=== PATIENT | male | born 1955 | race Caucasian/White ===

== ENCOUNTER 2017-06-13 17:20 | Inpatient (IN) | payer MEDICAID, MEDICARE ==
[2017-06-13 17:21] VITALS: BMI 21.5
[2017-06-13] MEDS ORDERED: Albuterol-Ipratrop 3 mg / 0.5 (3 ml) UD INH STA (17:49)
[2017-06-13] MEDS ORDERED: Albuterol-Ipratrop 3 mg / 0.5 (3 ml) UD ONE (17:55)
--- NOTE | 2017-06-13 18:00 | ED PDOC ---
HPI: SOB/CHF/COPD Time Seen by Provider: 06/13/17 17:32 Chief Complaint (Nursing): Shortness Of Breath Chief Complaint (Provider): Shortness Of Breath History Per: Patient History/Exam Limitations: no limitations Onset/Duration Of Symptoms: Days (x3) Current Symptoms Are (Timing): Still Present Additional Complaint(s): 62 y/o male with a pmhx of emphysema and HTN, who presents to the ED complaining of SOB and cough x3 days. Patient reports cough is productive of white sputum and associated with chest tightness. Denies fever, but confirms chills. Denies leg swelling and chest pain. PMD: Dr. Vu Past Medical History Reviewed: Historical Data, Nursing Documentation, Vital Signs Vital Signs: Last Vital Signs Temp 98.2 F 06/16/17 08:07 Pulse 54 L 06/16/17 09:12 Resp 18 06/16/17 08:07 BP 139/72 06/16/17 09:12 Pulse Ox 98 06/16/17 08:07 - Medical History PMH: Depression, Emphysema, HTN, Schizophrenia Denies: Diabetes, Hepatitis, HIV, Chronic Kidney Disease, Seizures, Sexually Transmitted Disease - Surgical History Surgical History: No Surg Hx - Family History Family History: States: Unknown Family Hx - Social History Current smoker - smoking cessation education provided: Yes Alcohol: Other (currently in [facility] for alcoholism) Drugs: Denies - Home Medications Home Medications: Ambulatory Orders Medication Instructions Recorded Atenolol [Tenormin] 25 mg PO DAILY 06/13/17 Benztropine [Cogentin] 1 mg PO Q12 06/13/17 Carbamazepine [Carbamazepine ER] 300 mg PO HS 06/13/17 Famotidine [Pepcid] 20 mg PO BID 06/13/17 Ibuprofen [Motrin Tab] 400 mg PO Q6 PRN 06/13/17 Phenytoin, Extended [Dilantin] 200 mg PO Q12 06/13/17 Ramipril [Altace] 10 mg PO DAILY 06/13/17 Silver Sulfadiazine [Ssd] 1 appl TOP DAILY 06/13/17 risperiDONE [RisperDAL Tab] 3 mg PO Q12 06/13/17 - Allergies Allergies/Adverse Reactions: Allergies Allergy/AdvReac Type Severity Reaction Status Date / Time No Known Allergies Allergy Verified 11/27/15 23:12 Review of Systems ROS Statement: Except As Marked, All Systems Reviewed And Found Negative Constitutional: Positive for: Chills. Negative for: Fever Cardiovascular: Positive for: Other (chest tightness). Negative for: Chest Pain Respiratory: Positive for: Cough, Shortness of Breath, Sputum Musculoskeletal: Negative for: Leg Pain Physical Exam - Reviewed Nursing Documentation Reviewed: Yes Vital Signs Reviewed: Yes - Physical Exam Appears: Positive for: In Acute Distress (mild respiratory distress, somewhat unkempt, cachectic ) Head Exam: Positive for: ATRAUMATIC, NORMOCEPHALIC Skin: Positive for: Warm, Dry Eye Exam: Positive for: EOMI, PERRL ENT: Positive for: Other (dry mucous membranes) Neck: Positive for: Painless ROM, Supple Cardiovascular/Chest: Positive for: Regular Rate, Rhythm. Negative for: Murmur Respiratory: Positive for: Accessory Muscle Use (mild), Rhonchi (diffuse), Respiratory Distress (mild) Gastrointestinal/Abdominal: Positive for: Soft. Negative for: Tenderness Back: Negative for: Decreased ROM Extremity: Positive for: Other (subacute wound to first web space of left hand which patient reports is a burn from coffee). Negative for: Pedal Edema, Swelling Lymphatic: Negative for: Adenopathy Neurologic/Psych: Positive for: Alert. Negative for: Motor/Sensory Deficits - Laboratory Results Result Diagrams: 06/14/17 04:20 06/16/17 06:20 - ECG O2 Sat by Pulse Oximetry: 97 Medical Decision Making Medical Decision Makin:48 Initial Impression: Dyspnea. Differential diagnoses include, but are not limited to COPD exacerbation, pneumonia, CHF, hyperkalemia, ACS, and electrolyte abnormality. Plan: --Blood type and screen --VGB shock panel --EKG --BNP --CMP --Magnesium --Phosphorus --Troponin I --CBC --PTT/PT --CXR --Duoneb 9ml INH --Solu-Medrol 125mg IVP --Blood culture --monitor tech --IV Insertion --Influenza A/B EKG: Sinus rhythm 73 bpm, LVH with narrow QRS, questionable peaked T waves. Accession No. : [id number] Patient Name / ID : HARINDER MCKEON / [id number] Exam Date : 06/13/2017 18:02:45 ( Approved ) Study Comment : Sex / Age : M / 62Y Creator : Gilbert Otero MD Dictator : Gilbert Otero MD [employer] : [employer] Grader : Gilbert Otero MD Approver2 : Report Date : 06/13/2017 18:29:34 My Comment : HISTORY: SOB COMPARISON: No prior. FINDINGS: LUNGS: No active pulmonary disease. PLEURA: No significant pleural effusion identified, no pneumothorax apparent. CARDIOVASCULAR: No radiographic findings to suggest acute or significant cardiovascular disease. OSSEOUS STRUCTURES: No significant abnormalities. VISUALIZED UPPER ABDOMEN: Normal. OTHER FINDINGS: None. IMPRESSION: No active disease. When c/w previous CXR demonstrates increased size of cardiac silhouette. No infiltrate/effusion. Labs also demonstrate hyponatremia and elevated probnp. Findings c/w new or worsening CHF/fluid retention. Lasix ordered. DW pt findings and plan of care. Pt initially reporting he does not want to stay. Reviewed pt's history in medical chart and discussed with patient's group, who will not take him back if he is not medically stable. They report that he does not see his PMD regularly as recommended. Pt has history of schizophrenia and he poorly understands the circumstances of his medical condition. Pt to have psychiatric evaluation tomorrow to determine better his capacity for medical decision making. Will not allow pt to leave A at this time. Scribe Attestation: Documented by Trae French, acting as a scribe for Brianne Cabrera MD. Provider Scribe Attestation: All medical record entries made by the Scribe were at my direction and personally dictated by me. I have reviewed the chart and agree that the record accurately reflects my personal performance of the history, physical exam, medical decision making, and the department course for this patient. I have also personally directed, reviewed, and agree with the discharge instructions and disposition. Disposition - Clinical Impression Clinical Impression: Schizophrenia, Essential (primary) hypertension, CHF (congestive heart failure) , COPD exacerbation, Hyponatremia Discussed With Dr.: Lambert Best Doctor Will See Patient In The: Hospital Counseled Patient/Family Regarding: Studies Performed, Diagnosis - Disposition Disposition Time: 20:00 Condition: GUARDED - Pt Status Changed To: Hospital Disposition Of: Inpatient - Admit Certification Admit to Inpatient:: After my assessment, the patient will require hospitalization for at least two midnights. This is because of the severity of symptoms shown, intensity of services needed, and/or the medical risk in this patient being treated as an outpatient. - POA Present On Arrival: None
[2017-06-13 18:10] LABS: BASO % 0.8 % (0.0-2.0); EOS % 0.3 % (0.0-4.0); HEMOGLOBIN 14.8 g/dL (12.0-18.0); LYMPH # 0.5 K/uL (1.0-4.3); LYMPH % 14.7 % (20.0-40.0); MEAN CELL VOLUME 96.9 fl (80.0-94.0); MEAN CORPUSCULAR HEMOGLOBIN 34.6 pg (27.0-31.0); MEAN CORPUSCULAR HGB CONC 35.7 g/dL (33.0-37.0); MONO # 0.8 K/uL (0.0-0.8); MONO % 22.6 % (0.0-10.0); NEUT # 2.3 K/uL (1.8-7.0); NEUT % 61.6 % (50.0-75.0); NRBC % 0.1 % (0.0-0.0); PLATELET COUNT 119 K/uL (130-400); RBC 4.29 Mil/uL (4.40-5.90); RED CELL DISTRIBUTION WIDTH 13.2 % (11.5-14.5); WHITE BLOOD COUNT 3.7 K/uL (4.8-10.8)
[2017-06-13 18:13] LABS: VENOUS BLOOD GAS BASE EXCESS 2.8 mmol/L (0.0-2.0); VENOUS BLOOD GAS PCO2 40 mmHg (40-60); VENOUS BLOOD GAS PO2 40 mm/Hg (30-55); VENOUS BLOOD PH 7.44 (7.32-7.43)
[2017-06-13 18:20] LABS: PARTIAL THROMBOPLASTIN TIME 31.9 Seconds (25.6-37.1); PROTHROMBIN TIME 11.5 Seconds (9.8-13.1)
--- NOTE | 2017-06-13 18:30 | RAD ---
HISTORY: SOB COMPARISON: No prior. FINDINGS: LUNGS: No active pulmonary disease. PLEURA: No significant pleural effusion identified, no pneumothorax apparent. CARDIOVASCULAR: No radiographic findings to suggest acute or significant cardiovascular disease. OSSEOUS STRUCTURES: No significant abnormalities. VISUALIZED UPPER ABDOMEN: Normal. OTHER FINDINGS: None. IMPRESSION: No active disease.
[2017-06-13 18:31] LABS: ALB/GLOB RATIO 1.6 (1.0-2.1); ALBUMIN 4.1 g/dL (3.5-5.0); ALT/SGPT 41 U/L (21-72); AST/SGOT 35 U/L (17-59); BLOOD UREA NITROGEN 12 mg/dl (9-20); GFR AFRICAN-AMERICAN > 60; GFR NON-AFRICAN AMERICAN > 60
[2017-06-13 18:42] LABS: B-TYPE NATRIURETIC PEPTIDE 1340 pg/ml (0-900)
[2017-06-13] MEDS ORDERED: Sodium Chloride 0.9% 1,000 ML IV STA (18:43)
[2017-06-13 19:20] LABS: BANDS 1 % (0-2); LYMPHOCYTE 3 % (20-50); MONOCYTE 20 % (0-10); NEUTROPHIL 68 % (42-75); PLATELET ESTIMATE DECREASED (NORMAL); REACTIVE LYMPHOCYTES 8 % (0-0); TOTAL CELLS COUNTED 100
[2017-06-14] MEDS: Albuterol-Ipratrop 3 mg / 0.5 (3 ml) UD INH SCH ×4 (00:59→19:18)
[2017-06-14 05:38] LABS: HEMOGLOBIN 14.6 g/dL (12.0-18.0); MEAN CELL VOLUME 96.8 fl (80.0-94.0); MEAN CORPUSCULAR HGB CONC 35.1 g/dL (33.0-37.0); RBC 4.29 Mil/uL (4.40-5.90); RED CELL DISTRIBUTION WIDTH 13.2 % (11.5-14.5); WHITE BLOOD COUNT 3.6 K/uL (4.8-10.8)
[2017-06-14 05:49] LABS: BLOOD UREA NITROGEN 13 mg/dl (9-20); CALCIUM 8.9 mg/dL (8.4-10.2); GFR AFRICAN-AMERICAN > 60; GFR NON-AFRICAN AMERICAN > 60
[2017-06-14] MEDS: Enoxaparin 40 mg Syringe SC SCH (08:33)
[2017-06-14] MEDS: Silver Sulfadiazine 1% CREAM (50 gm) TOP SCH (08:36)
[2017-06-14] MEDS ORDERED: methylPREDNISolone 40 MG in Sodium Chloride 0.9% 50 ML IVPB SCH (09:15)
[2017-06-14 09:16] LABS: CARBAMAZEPINE < 3.0 ug/mL (4.0-12.0); DILANTIN (PHENYTOIN) 4.9 ug/ML (10-20)
--- NOTE | 2017-06-14 10:03 | HP ---
HISTORY OF PRESENT ILLNESS: Mr. Pringle is a 62-year-old male who was admitted via the emergency room because of shortness of breath, exercise intolerance, and cough for the past 3 days prior to presentation, worse on the day of admission. He complains of production of whitish sputum with chest tightness, but no fever or chills, no swelling of the legs. PAST MEDICAL HISTORY: Chronic obstructive pulmonary disease, hypertension, questionable congestive heart failure, and schizophrenia. FAMILY HISTORY: Non-revealing. SOCIAL HISTORY: Socially, he resides in a senior care. Continues to smoke cigarettes. Does not drink alcohol. Does not use drugs. REVIEW OF SYSTEMS: Remarkable for cough and shortness of breath. PHYSICAL EXAMINATION: GENERAL: The patient is alert and oriented to person but not to place. VITAL SIGNS: Blood pressure 150/69 with the pulse of 61, respiratory rate of 20. He is afebrile. O2 sat is 97% on room air. SKIN: Shows fair turgor. HEENT: Pupils are equal and reactive to light and accommodation. Mouth shows fair hygiene with mucous engorgement of pharynx. NECK: JVP flat. LUNGS: Poor aeration with scattered rales and wheezing. HEART: S1 and S2. ABDOMEN: Soft and nontender, no organomegaly. EXTREMITIES: Show no edema or cyanosis. CENTRAL NERVOUS SYSTEM: Grossly intact. LABORATORY DATA: WBC 3.7, hemoglobin 14.8, and platelet count 119,000. Sodium 123, potassium 4.6, BUN 12, creatinine 0.6, and serum glucose 71. Chest x-ray is remarkable for no active cardiopulmonary pathology noted. EKG is remarkable for normal sinus rhythm, left ventricular hypertrophy with repolarization cannot rule out inferior infarct. IMPRESSION: Acute exacerbation of chronic obstructive pulmonary, mild congestive heart failure based on elevated proBNP, hyponatremia, probably secondary to pulmonary disease and syndrome of inappropriate antidiuretic hormone secretion, and history of psychiatric disorder. PLAN: The plan is diuretic therapy, aerolized bronchodilators, oxygen, and intravenous steroids. We will repeat blood work and chest x-ray in the a.m. Psych evaluation already requested from the ER. Echocardiogram also ordered. Cardiac evaluation depending on echocardiogram results. We will continue therapy as ordered. Lambert Best MD [facility] # [id number]
[2017-06-14] MEDS: MethylPREDNISolone 40 mg Vial IVP SCH ×2 (10:23→21:45)
--- NOTE | 2017-06-14 10:43 | CARD ---
APPROVED REPORT EKG Measurement Heart [id number] [place] [id number] [id number] <Conclusion> Normal sinus rhythm Left ventricular hypertrophy with repolarization abnormality Cannot rule out Inferior infarct, age undetermined Abnormal ECG
[2017-06-14 10:50] LABS: ABG ALLEN TEST YES; ARTERIAL BLOOD GAS HCO3 25.6 mmol/L (21-28); ARTERIAL BLOOD GAS HEMOGLOBIN 14.5 g/dL (11.7-17.4); ARTERIAL BLOOD GAS O2 CAPACITY 19.3 mL/dL (16-24); ARTERIAL BLOOD GAS O2 CONTENT 19.1 ML/dL (15-23); ARTERIAL BLOOD GAS O2 SAT 98.9 % (95-98); ARTERIAL BLOOD GAS PCO2 32 mm/Hg (35-45); ARTERIAL BLOOD GAS PH 7.48 (7.35-7.45); ARTERIAL BLOOD GAS PO2 94 mm/Hg (80-100); ARTERIAL BLOOD GAS TCO2 24.8 mmol/L (22-28)
--- NOTE | 2017-06-14 12:12 | CARD ---
APPROVED REPORT EXAM: Two-dimensional and M-mode echocardiogram with Doppler and color Doppler. Other Information Quality : ExcellentRhythm : NSR INDICATION Congestive Heart Failure 2D DIMENSIONS IVSd1.43 (0.7-1.1cm)LVDd6.07 (3.9-5.9cm) LVOT Diameter2.04 (1.8-2.4cm)PWd0.73 (0.7-1.1cm) IVSs1.55 (0.8-1.2cm)LVDs5.27 (2.5-4.0cm) FS (%) 13.2 %PWs0.85 (0.8-1.2cm) M-Mode DIMENSIONS Left Atrium (MM)5.71 (2.5-4.0cm)IVSd0.97 (0.7-1.1cm) Aortic Root3.24 (2.2-3.7cm)LVDd7.06 (4.0-5.6cm) Aortic Cusp Exc.1.76 (1.5-2.0cm)PWd0.68 (0.7-1.1cm) IVSs1.85 cmFS (%) 28 % LVDs5.09 (2.0-3.8cm)PWs0.91 cm Mitral Valve MV E Ronhpkeb96.2cm/sMV DECEL [id number] A Coygmpzn42.2cm/s MV THH93nuW/A ratio1.6MVA (PHT)4.11cm2 TDI Lateral E' Peak V14.75cm/sMedial E' Peak V8.56cm/sE/Lateral E'6.2 E/Medial E'10.7 Pulmonary Valve PV Peak Qrdboxjx487.1cm/s Tricuspid Valve TR Peak Bkpoijay922qk/sRAP UVTRMFJP66gtGwSA Peak Gr.25mmHg RPBW93hpJr LEFT VENTRICLE The Left Ventricle is moderately dilated. There is mild concentric left ventricular hypertrophy on the 2D study. Left ventricle systolic function is moderately impaired. The Ejection Fraction is - 40%. The anterior, septal and lateral lou contract well. The apex is mildly diskinetic in some views. The inferior and posterior lou are severely hypokinetic in some views. The left ventricular diastolic function is normal. No left ventricle thrombus noted on this study. There is no ventricular septal defect visualized. There is no left ventricular aneurysm. There is no mass noted in the left ventricle. RIGHT VENTRICLE The right ventricle is normal size. There is normal right ventricular wall thickness. The right ventricular systolic function is normal. ATRIA The left atrium is moderately dilated on the 2D study. There is no thrombus suspected in the left atrium. The right atrium size is normal. The interatrial septum is intact with no evidence for an atrial septal defect. AORTIC VALVE The aortic valve is normal in structure. No aortic regurgitation is present. There is no aortic valvular stenosis. MITRAL VALVE The mitral valve is normal in structure. There is no evidence of mitral valve prolapse. There is no mitral valve stenosis. Mitral regurgitation is severe. TRICUSPID VALVE The tricuspid valve is normal in structure. There is moderate tricuspid regurgitation. Right ventricular systolic pressure is estimated at 35 mmHg. There is no tricuspid valve prolapse or vegetation. There is no tricuspid valve stenosis. PULMONIC VALVE The pulmonary valve is normal in structure. There is trace pulmonic valvular regurgitation. GREAT VESSELS The aortic root is normal in size. The IVC is normal in size and collapses >50% with inspiration. PERICARDIAL EFFUSION The pericardium appears normal. There is no pleural effusion. <Conclusion> The Left Ventricle is moderately dilated. There is mild concentric left ventricular hypertrophy on the 2D study. Left ventricle systolic function is moderately impaired. The Ejection Fraction is - 40%. The left atrium is moderately dilated on the 2D study. The mitral, aortic and tricuspid valves are normal. There is severe mitral regurgitation and moderate tricuspid regurgitation.
[2017-06-14] MEDS: levoFLOXacin 500 mg in D5W 500 MG/100 ML BAG IVPB SCH (14:31)
--- NOTE | 2017-06-14 16:12 | CP.PCM.CON ---
History of Present Illness - History of Present Illness History of Present Illness: 62 y/o male with a pmhx of emphysema and HTN, who presents to the ED complaining of SOB and cough x3 days. pt has history of schizophrenia, currently residing in a snf, followed up buy outpatient psychiatrist pt on evaluation cooperative compliant with medications, no reported changes in sleep or appetitedenied any current perceptual disturbances, denied suicidal or homicidal ideations Past Patient History - Past Medical History & Family History Past Medical History?: Yes - Past Social History Smoking Status: Current Some Days Smoker - CARDIAC Hx Cardiac Disorders: Yes Hx Hypertension: Yes - PULMONARY Hx Respiratory Disorders: Yes Hx Emphysema: Yes - NEUROLOGICAL Hx Neurological Disorder: No Hx Seizures: No - HEENT Hx HEENT Problems: Yes Hx Glaucoma: Yes - RENAL Hx Chronic Kidney Disease: No - ENDOCRINE/METABOLIC Hx Endocrine Disorders: No - HEMATOLOGICAL/ONCOLOGICAL Hx Blood Disorders: No Hx AIDS: No Hx Human Immunodeficiency Virus (HIV): No - INTEGUMENTARY Hx Dermatological Problems: Yes Hx Clemens: Yes (Left hand) - MUSCULOSKELETAL/RHEUMATOLOGICAL Hx Musculoskeletal Disorders: No Hx Falls: No - GASTROINTESTINAL Hx Gastrointestinal Disorders: No - GENITOURINARY/GYNECOLOGICAL Hx Genitourinary Disorders: No Hx Sexually Transmitted Disorders: No - PSYCHIATRIC Hx Psychophysiologic Disorder: Yes Hx Depression: Yes Hx Schizophrenia: Yes Hx Substance Use: No - SURGICAL HISTORY Hx Surgeries: No - ANESTHESIA Hx Anesthesia: No Meds Allergies/Adverse Reactions: Allergies Allergy/AdvReac Type Severity Reaction Status Date / Time No Known Allergies Allergy Verified 11/27/15 23:12 - Medications Medications: Current Medications Acetaminophen (Tylenol 325mg Tab) 650 mg PO Q6 PRN PRN Reason: Fever >100.4 F Last Admin: 06/14/17 14:41 Dose: 650 mg Albuterol/Ipratropium (Duoneb 3 Mg/0.5 Mg (3 Ml) Ud) 3 ml INH RQ6 KWESI Last Admin: 06/14/17 13:46 Dose: 3 ml Aspirin (Ecotrin) 81 mg PO DAILY [facility] Last Admin: 06/14/17 08:35 Dose: 81 mg Atenolol (Tenormin) 25 mg PO DAILY [facility] Last Admin: 06/14/17 08:36 Dose: 25 mg Benztropine Mesylate (Cogentin) 1 mg PO Q12 [facility] Last Admin: 06/14/17 08:34 Dose: 1 mg Carbamazepine (Tegretol-Xr) 300 mg PO HS [facility] Last Admin: 06/14/17 00:38 Dose: 300 mg Enoxaparin Sodium (Lovenox) 40 mg SC DAILY [facility] PRN Reason: Protocol Last Admin: 06/14/17 08:33 Dose: 40 mg Famotidine (Pepcid) 20 mg PO BID [facility] Last Admin: 06/14/17 08:32 Dose: 20 mg Furosemide (Lasix) 40 mg IVP DAILY [facility] Last Admin: 06/14/17 13:13 Dose: 40 mg Levofloxacin/Dextrose (Levaquin 500mg) 500 mg in 100 mls @ 100 mls/hr IVPB DAILY [facility] PRN Reason: Protocol Last Admin: 06/14/17 14:31 Dose: 100 mls/hr Ibuprofen (Motrin Tab) 400 mg PO Q6 PRN PRN Reason: Pain, moderate (4-7) Methylprednisolone (Solu-Medrol) 40 mg IVP Q12 [facility] Last Admin: 06/14/17 10:23 Dose: 40 mg Nicotine (Nicoderm Cq) 1 patch TD DAILY [facility] Last Admin: 06/14/17 14:40 Dose: 1 patch Phenytoin Sodium (Dilantin) 200 mg PO Q12 [facility] Last Admin: 06/14/17 08:35 Dose: 200 mg Ramipril (Altace) 10 mg PO DAILY [facility] Last Admin: 06/14/17 08:35 Dose: 10 mg Risperidone (Risperdal Tab) 3 mg PO Q12 [facility] Last Admin: 06/14/17 08:35 Dose: 3 mg Silver Sulfadiazine (Silvadene 1% 50 Gm) 1 applic TOP DAILY [facility] Last Admin: 06/14/17 08:36 Dose: 1 applic Physical Exam - Psychiatric Exam Additional comments: pt calm cooperative good eye contact, mood reported fine appropriate affect, concrete thought process denied any perceptual disturbances, non elicited, denied suicidal or homicidal ideations ,alert awake oriented to person and place fair insight Results - Vital Signs Recent Vital Signs: Last Vital Signs Temp 101.8 F H 06/14/17 14:41 Pulse 70 06/14/17 12:23 Resp 18 06/14/17 12:23 BP 135/71 06/14/17 13:13 Pulse Ox 96 06/14/17 12:23 - Labs Result Diagrams: 06/14/17 04:20 06/14/17 04:20 Labs: Laboratory Results - last 24 hr 06/13/17 06/13/17 06/13/17 18:00 18:00 18:00 WBC 3.7 L RBC 4.29 L Hgb 14.8 Hct 41.6 MCV 96.9 H MCH 34.6 H MCHC 35.7 RDW 13.2 Plt Count 119 L MPV 7.0 L Neut % (Auto) 61.6 Lymph % (Auto) 14.7 L Franklin % (Auto) 22.6 H Eos % (Auto) 0.3 Baso % (Auto) 0.8 Neut # (Auto) 2.3 Lymph # (Auto) 0.5 L Franklin # (Auto) 0.8 Eos # (Auto) 0.0 Baso # (Auto) 0.0 Neutrophils % (Manual) 68 Band Neutrophils % 1 Lymphocytes % (Manual) 3 L Reactive Lymphs % 8 H Monocytes % (Manual) 20 H Platelet Estimate Decreased L RBC Morphology Normal PT 11.5 INR 1.0 APTT 31.9 pCO2 pO2 HCO3 ABG pH ABG Total CO2 ABG O2 Saturation ABG O2 Content ABG Base Excess ABG Hemoglobin ABG Carboxyhemoglobin POC ABG HHb (Measured) ABG Methemoglobin ABG O2 Capacity Taj Test VBG pH VBG pCO2 VBG HCO3 VBG Total CO2 VBG O2 Sat (Calc) VBG Base Excess VBG Potassium A-a O2 Difference Hgb O2 Saturation Glucose Lactate FiO2 Blood Gas Comments Crit Value Called To Crit Value Called By Crit Value Read Back Blood Gas Notified Time Sodium 123 L Potassium 4.6 Chloride 90 L Carbon Dioxide 23 Anion Gap 15 BUN 12 Creatinine 0.6 L Est GFR ( Amer) > 60 Est GFR (Non-Af Amer) > 60 Random Glucose 71 L Calcium 9.0 Phosphorus 3.8 Magnesium 1.9 Total Bilirubin 0.5 AST 35 ALT 41 Alkaline Phosphatase 75 Troponin I 0.0140 NT-Pro-B Natriuret Pep 1340 H Total Protein 6.7 Albumin 4.1 Globulin 2.6 Albumin/Globulin Ratio 1.6 Venous Blood Potassium Phenytoin Carbamazepine Influenza Typ A,B (EIA) Blood Type Blood Type Confirm Antibody Screen BBK History Checked 06/13/17 06/13/17 06/13/17 18:00 18:07 19:00 WBC RBC Hgb Hct MCV MCH MCHC RDW Plt Count MPV Neut % (Auto) Lymph % (Auto) Franklin % (Auto) Eos % (Auto) Baso % (Auto) Neut # (Auto) Lymph # (Auto) Franklin # (Auto) Eos # (Auto) Baso # (Auto) Neutrophils % (Manual) Band Neutrophils % Lymphocytes % (Manual) Reactive Lymphs % Monocytes % (Manual) Platelet Estimate RBC Morphology PT INR APTT pCO2 pO2 40 HCO3 ABG pH ABG Total CO2 ABG O2 Saturation ABG O2 Content ABG Base Excess ABG Hemoglobin ABG Carboxyhemoglobin POC ABG HHb (Measured) ABG Methemoglobin ABG O2 Capacity Taj Test VBG pH 7.44 H VBG pCO2 40 VBG HCO3 26.6 VBG Total CO2 28.4 H VBG O2 Sat (Calc) 82.2 H VBG Base Excess 2.8 H VBG Potassium 4.6 A-a O2 Difference 60.0 Hgb O2 Saturation Glucose 72 L Lactate 0.9 FiO2 21.0 Blood Gas Comments Crit Value Called To Zoe hassan Crit Value Called By 23 Crit Value Read Back Y Blood Gas Notified Time 1811 Sodium 120.0 L* Potassium Chloride 89.0 L Carbon Dioxide Anion Gap BUN Creatinine Est GFR ( Amer) Est GFR (Non-Af Amer) Random Glucose Calcium Phosphorus Magnesium Total Bilirubin AST ALT Alkaline Phosphatase Troponin I NT-Pro-B Natriuret Pep Total Protein Albumin Globulin Albumin/Globulin Ratio Venous Blood Potassium 4.6 Phenytoin Carbamazepine Influenza Typ A,B (EIA) Blood Type A POSITIVE Blood Type Confirm A POSITIVE Antibody Screen Negative BBK History Checked No verified bt 06/13/17 06/14/17 06/14/17 19:10 04:20 04:20 WBC 3.6 L RBC 4.29 L Hgb 14.6 Hct 41.5 MCV 96.8 H MCH 34.0 H MCHC 35.1 RDW 13.2 Plt Count 109 L MPV Neut % (Auto) Lymph % (Auto) Franklin % (Auto) Eos % (Auto) Baso % (Auto) Neut # (Auto) Lymph # (Auto) Franklin # (Auto) Eos # (Auto) Baso # (Auto) Neutrophils % (Manual) Band Neutrophils % Lymphocytes % (Manual) Reactive Lymphs % Monocytes % (Manual) Platelet Estimate RBC Morphology PT INR APTT pCO2 pO2 HCO3 ABG pH ABG Total CO2 ABG O2 Saturation ABG O2 Content ABG Base Excess ABG Hemoglobin ABG Carboxyhemoglobin POC ABG HHb (Measured) ABG Methemoglobin ABG O2 Capacity Taj Test VBG pH VBG pCO2 VBG HCO3 VBG Total CO2 VBG O2 Sat (Calc) VBG Base Excess VBG Potassium A-a O2 Difference Hgb O2 Saturation Glucose Lactate FiO2 Blood Gas Comments Crit Value Called To Crit Value Called By Crit Value Read Back Blood Gas Notified Time Sodium 125 L Potassium 3.7 Chloride 90 L Carbon Dioxide 23 Anion Gap 16 BUN 13 Creatinine 0.7 L Est GFR ( Amer) > 60 Est GFR (Non-Af Amer) > 60 Random Glucose 96 Calcium 8.9 Phosphorus Magnesium Total Bilirubin AST ALT Alkaline Phosphatase Troponin I NT-Pro-B Natriuret Pep Total Protein Albumin Globulin Albumin/Globulin Ratio Venous Blood Potassium Phenytoin Carbamazepine Influenza Typ A,B (EIA) Negative for flu a/b Blood Type Blood Type Confirm Antibody Screen BBK History Checked 06/14/17 06/14/17 08:45 09:14 WBC RBC Hgb Hct MCV MCH MCHC RDW Plt Count MPV Neut % (Auto) Lymph % (Auto) Franklin % (Auto) Eos % (Auto) Baso % (Auto) Neut # (Auto) Lymph # (Auto) Franklin # (Auto) Eos # (Auto) Baso # (Auto) Neutrophils % (Manual) Band Neutrophils % Lymphocytes % (Manual) Reactive Lymphs % Monocytes % (Manual) Platelet Estimate RBC Morphology PT INR APTT pCO2 32 L pO2 94 HCO3 25.6 ABG pH 7.48 H ABG Total CO2 24.8 ABG O2 Saturation 98.9 H ABG O2 Content 19.1 ABG Base Excess 1.0 ABG Hemoglobin 14.5 ABG Carboxyhemoglobin 4.4 H POC ABG HHb (Measured) 1.0 ABG Methemoglobin 1.4 ABG O2 Capacity 19.3 Taj Test Yes VBG pH VBG pCO2 VBG HCO3 VBG Total CO2 VBG O2 Sat (Calc) VBG Base Excess VBG Potassium A-a O2 Difference 16.0 Hgb O2 Saturation 93.2 L Glucose Lactate FiO2 21.0 Blood Gas Comments Ra21% Crit Value Called To Rowan lewis r.n. Crit Value Called By Padmini Crit Value Read Back N Blood Gas Notified Time 1050 Sodium Potassium Chloride Carbon Dioxide Anion Gap BUN Creatinine Est GFR ( Amer) Est GFR (Non-Af Amer) Random Glucose Calcium Phosphorus Magnesium Total Bilirubin AST ALT Alkaline Phosphatase Troponin I NT-Pro-B Natriuret Pep Total Protein Albumin Globulin Albumin/Globulin Ratio Venous Blood Potassium Phenytoin 4.9 L Carbamazepine < 3.0 L Influenza Typ A,B (EIA) Blood Type Blood Type Confirm Antibody Screen BBK History Checked Assessment & Plan - Assessment and Plan (Free Text) Assessment: schizophrenia residual Plan: pt stable at current mental status continue risperidone 3mg bid pt psychiatricaly cleared for discharge to snf on medical clearence
[2017-06-15] MEDS: Albuterol-Ipratrop 3 mg / 0.5 (3 ml) UD INH SCH ×4 (01:00→20:15)
[2017-06-15 06:02] LABS: BLOOD UREA NITROGEN 18 mg/dl (9-20); CALCIUM 8.7 mg/dL (8.4-10.2); GFR AFRICAN-AMERICAN > 60; GFR NON-AFRICAN AMERICAN > 60
[2017-06-15 06:08] LABS: B-TYPE NATRIURETIC PEPTIDE 1200 pg/ml (0-900)
[2017-06-15] MEDS: Silver Sulfadiazine 1% CREAM (50 gm) TOP SCH (09:29)
[2017-06-15] MEDS: Enoxaparin 40 mg Syringe SC SCH ×2 (09:30→09:31)
[2017-06-15] MEDS: MethylPREDNISolone 40 mg Vial IVP SCH ×2 (09:30→21:52)
[2017-06-15] MEDS: levoFLOXacin 500 mg in D5W 500 MG/100 ML BAG IVPB SCH (09:32)
--- NOTE | 2017-06-15 09:37 | IP.NPCORE ---
Heart Failure Core Measure - Heart Failure Ejection Fraction: Less Than 40 % (06/14 EF 40%- on Lasix iv) LAUREN Inhibitor Prescribed: Yes Contraindication/Reason for not providing: atenolol
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
--- NOTE | 2017-06-15 10:10 | CP.PCM.PN ---
Subjective - Date & Time of Evaluation Date of Evaluation: 06/15/17 Time of Evaluation: 10:12 - Subjective Subjective: STILL COUGHING AND DYSPNEIC ON MILD EXERION NO CHEST PAINS Objective - Vital Signs/Intake and Output Vital Signs (last 24 hours): Temp Pulse Resp BP Pulse Ox 97.9 F 62 18 130/71 99 06/15/17 07:47 06/15/17 09:29 06/15/17 07:47 06/15/17 09:32 06/15/17 07:47 - Medications Medications: Current Medications Acetaminophen (Tylenol 325mg Tab) 650 mg PO Q6 PRN PRN Reason: Fever >100.4 F Last Admin: 06/15/17 00:51 Dose: 650 mg Albuterol/Ipratropium (Duoneb 3 Mg/0.5 Mg (3 Ml) Ud) 3 ml INH RQ6 [facility] Last Admin: 06/15/17 07:45 Dose: Not Given Aspirin (Ecotrin) 81 mg PO DAILY [facility] Last Admin: 06/15/17 09:30 Dose: 81 mg Benztropine Mesylate (Cogentin) 1 mg PO Q12 [facility] Last Admin: 06/15/17 09:30 Dose: 1 mg Carbamazepine (Tegretol-Xr) 300 mg PO HS [facility] Last Admin: 06/14/17 00:38 Dose: 300 mg Enoxaparin Sodium (Lovenox) 40 mg SC DAILY [facility] PRN Reason: Protocol Last Admin: 06/15/17 09:31 Dose: 40 mg Famotidine (Pepcid) 20 mg PO BID [facility] Last Admin: 06/15/17 09:29 Dose: 20 mg Furosemide (Lasix) 40 mg IVP DAILY [facility] Last Admin: 06/15/17 09:32 Dose: 40 mg Levofloxacin/Dextrose (Levaquin 500mg) 500 mg in 100 mls @ 100 mls/hr IVPB DAILY [facility] PRN Reason: Protocol Last Admin: 06/15/17 09:32 Dose: 100 mls/hr Ibuprofen (Motrin Tab) 400 mg PO Q6 PRN PRN Reason: Pain, moderate (4-7) Methylprednisolone (Solu-Medrol) 40 mg IVP Q12 [facility] Last Admin: 06/15/17 09:30 Dose: 40 mg Metoprolol Succinate (Toprol Xl) 25 mg PO DAILY [facility] Nicotine (Nicoderm Cq) 1 patch TD DAILY [facility] Last Admin: 06/15/17 09:30 Dose: 1 patch Phenytoin Sodium (Dilantin) 200 mg PO Q12 [facility] Last Admin: 06/15/17 09:30 Dose: 200 mg Ramipril (Altace) 10 mg PO DAILY [facility] Last Admin: 06/15/17 09:29 Dose: 10 mg Risperidone (Risperdal Tab) 3 mg PO Q12 [facility] Last Admin: 06/15/17 09:30 Dose: 3 mg Silver Sulfadiazine (Silvadene 1% 50 Gm) 1 applic TOP DAILY [facility] Last Admin: 06/15/17 09:29 Dose: 1 applic - Labs Labs: 06/14/17 04:20 06/15/17 04:20 PT 11.5 Seconds (9.8-13.1) 06/13/17 18:00 INR 1.0 (0.9-1.2) 06/13/17 18:00 APTT 31.9 Seconds (25.6-37.1) 06/13/17 18:00 - Constitutional Appears: Chronically Ill - Head Exam Head Exam: ATRAUMATIC, NORMAL INSPECTION, NORMOCEPHALIC - Eye Exam Eye Exam: EOMI, Normal appearance, PERRL Pupil Exam: NORMAL ACCOMODATION, PERRL - ENT Exam ENT Exam: Mucous Membranes Moist, Normal Exam - Neck Exam Neck Exam: Full ROM, Normal Inspection. absent: Lymphadenopathy - Respiratory Exam Respiratory Exam: Decreased Breath Sounds, Prolonged Expiratory Phase, Rales, Respiratory Distress, NORMAL BREATHING PATTERN - Cardiovascular Exam Cardiovascular Exam: REGULAR RHYTHM, +S1, +S2. absent: Murmur - GI/Abdominal Exam GI & Abdominal Exam: Soft, Normal Bowel Sounds. absent: Tenderness - Rectal Exam Rectal Exam: NORMAL INSPECTION - Extremities Exam Extremities Exam: Full ROM, Normal Capillary Refill, Normal Inspection. absent : Joint Swelling, Pedal Edema - Back Exam Back Exam: NORMAL INSPECTION - Neurological Exam Neurological Exam: Alert, Awake, CN II-XII Intact, Normal Gait, Oriented x3 - Psychiatric Exam Psychiatric exam: Normal Affect, Normal Mood - Skin Skin Exam: Dry, Intact, Rash, Warm Additional comments: DRY SCALY RASH OF FINGERS Assessment and Plan - Assessment and Plan (Free Text) Assessment: COPD EXAC CAD HTN ABNORMAL ECHO FEVER-?ETIOLOGY Plan: CONTINUE CURRENT RX IV ANTIBIOTICS AWAIT CARDIOLOGY EVAL
[2017-06-15] MEDS ORDERED: Sodium Chloride 3% for Inhalation 4 ML VIAL.NEB IH PRN (10:14)
[2017-06-15] MEDS: Metoprolol Succinate 25 mg XL Tab PO SCH (12:25)
--- NOTE | 2017-06-15 14:37 | RAD ---
HISTORY: CHF COMPARISON[facility]. TECHNIQUE: Chest PA and lateral FINDINGS: LUNGS: No interval active pulmonary disease. PLEURA: No significant pleural effusion identified. No pneumothorax apparent. CARDIOVASCULAR: Normal. OSSEOUS STRUCTURES: No significant abnormalities. VISUALIZED UPPER ABDOMEN: Normal. OTHER FINDINGS: None. IMPRESSION: No interval acute cardiopulmonary disease appreciated.
--- NOTE | 2017-06-15 20:26 | PN ---
DATE: SUBJECTIVE: The patient is still experiencing shortness of breath. PHYSICAL EXAMINATION: VITAL SIGNS: Blood pressure of 107/46, heart rate of 69, temperature of 98.4, and respirations of 17. HEENT: Normocephalic. CHEST: Bilateral rhonchi. HEART: S1 and S2 regular. EXTREMITIES: No edema. LABORATORY DATA: SMA-7; sodium 125, potassium 4, chloride 90, CO2 of 25, glucose 102, BUN 18, creatinine 0.8, and proBNP is 1200. Hemoglobin and hematocrit are within normal limits. White count 3.6 and platelet count 109,000. Echocardiographic study revealed ejection fraction 40%, severe mitral insufficiency, and moderate tricuspid insufficiency. Repeat chest x-ray revealed COPD picture and was borderline cardiomegaly. ASSESSMENT: 1. Moderate systolic heart failure. 2. Chronic obstructive lung disease. 3. Hyponatremia. 4. Leukopenia and thrombocytopenia. 5. History of psychiatric disorder. 6. Severe mitral insufficiency. 7. Mild pulmonary hypertension. RECOMMENDATIONS: Continue Altace, Cogentin, Dilantin, aspirin, IV Lasix, Solu-Medrol, and Toprol-XL. Marvin Hauser MD
[2017-06-16] MEDS: Albuterol-Ipratrop 3 mg / 0.5 (3 ml) UD INH SCH ×4 (01:00→19:42)
[2017-06-16 07:24] LABS: BLOOD UREA NITROGEN 20 mg/dl (9-20); CALCIUM 8.9 mg/dL (8.4-10.2); GFR AFRICAN-AMERICAN > 60; GFR NON-AFRICAN AMERICAN > 60
--- NOTE | 2017-06-16 08:36 | CP.PCM.PN ---
Subjective - Date & Time of Evaluation Date of Evaluation: 06/16/17 Time of Evaluation: 08:36 - Subjective Subjective: SOB IMPROVED COUGH LESS NO CHEST PAINS Objective - Vital Signs/Intake and Output Vital Signs (last 24 hours): Temp Pulse Resp BP Pulse Ox 98.2 F 53 L 18 139/72 98 06/16/17 08:07 06/16/17 08:07 06/16/17 08:07 06/16/17 08:07 06/16/17 08:07 - Medications Medications: Current Medications Acetaminophen (Tylenol 325mg Tab) 650 mg PO Q6 PRN PRN Reason: Fever >100.4 F Last Admin: 06/15/17 00:51 Dose: 650 mg Albuterol/Ipratropium (Duoneb 3 Mg/0.5 Mg (3 Ml) Ud) 3 ml INH RQ6 [facility] Last Admin: 06/16/17 01:00 Dose: Not Given Aspirin (Ecotrin) 81 mg PO DAILY [facility] Last Admin: 06/15/17 09:30 Dose: 81 mg Benztropine Mesylate (Cogentin) 1 mg PO Q12 [facility] Last Admin: 06/15/17 21:53 Dose: 1 mg Carbamazepine (Tegretol-Xr) 300 mg PO HS [facility] Last Admin: 06/15/17 21:53 Dose: 300 mg Enoxaparin Sodium (Lovenox) 40 mg SC DAILY [facility] PRN Reason: Protocol Last Admin: 06/15/17 09:30 Dose: Not Given Famotidine (Pepcid) 20 mg PO BID [facility] Last Admin: 06/15/17 17:03 Dose: 20 mg Furosemide (Lasix) 40 mg IVP DAILY [facility] Last Admin: 06/15/17 09:32 Dose: 40 mg Levofloxacin/Dextrose (Levaquin 500mg) 500 mg in 100 mls @ 100 mls/hr IVPB DAILY [facility] PRN Reason: Protocol Last Admin: 06/15/17 09:32 Dose: 100 mls/hr Ibuprofen (Motrin Tab) 400 mg PO Q6 PRN PRN Reason: Pain, moderate (4-7) Methylprednisolone (Solu-Medrol) 40 mg IVP Q12 [facility] Last Admin: 06/15/17 21:52 Dose: 40 mg Metoprolol Succinate (Toprol Xl) 25 mg PO DAILY [facility] Last Admin: 04/25/18 12:25 Dose: Not Given Nicotine (Nicoderm Cq) 1 patch TD DAILY [facility] Last Admin: 06/15/17 09:30 Dose: 1 patch Phenytoin Sodium (Dilantin) 200 mg PO Q12 [facility] Last Admin: 06/15/17 21:52 Dose: 200 mg Ramipril (Altace) 10 mg PO DAILY [facility] Last Admin: 06/15/17 09:29 Dose: 10 mg Risperidone (Risperdal Tab) 3 mg PO Q12 [facility] Last Admin: 06/15/17 21:52 Dose: 3 mg Silver Sulfadiazine (Silvadene 1% 50 Gm) 1 applic TOP DAILY [facility] Last Admin: 06/15/17 09:29 Dose: 1 applic - Labs Labs: 06/14/17 04:20 06/16/17 06:20 PT 11.5 Seconds (9.8-13.1) 06/13/17 18:00 INR 1.0 (0.9-1.2) 06/13/17 18:00 APTT 31.9 Seconds (25.6-37.1) 06/13/17 18:00 - Constitutional Appears: No Acute Distress - Head Exam Head Exam: ATRAUMATIC, NORMAL INSPECTION, NORMOCEPHALIC - Eye Exam Eye Exam: EOMI, Normal appearance, PERRL Pupil Exam: NORMAL ACCOMODATION, PERRL - ENT Exam ENT Exam: Mucous Membranes Moist, Normal Exam - Neck Exam Neck Exam: Full ROM, Normal Inspection. absent: Lymphadenopathy - Respiratory Exam Respiratory Exam: Decreased Breath Sounds, Prolonged Expiratory Phase, Rales, NORMAL BREATHING PATTERN - Cardiovascular Exam Cardiovascular Exam: REGULAR RHYTHM, +S1, +S2. absent: Murmur - GI/Abdominal Exam GI & Abdominal Exam: Soft, Normal Bowel Sounds. absent: Tenderness - Rectal Exam Rectal Exam: NORMAL INSPECTION - Extremities Exam Extremities Exam: Full ROM, Normal Capillary Refill, Normal Inspection. absent : Joint Swelling, Pedal Edema - Back Exam Back Exam: NORMAL INSPECTION - Neurological Exam Neurological Exam: Alert, Awake, CN II-XII Intact, Normal Gait, Oriented x3 - Psychiatric Exam Psychiatric exam: Normal Affect, Normal Mood - Skin Skin Exam: Dry, Intact, Normal Color, Warm Assessment and Plan - Assessment and Plan (Free Text) Assessment: COPD-IMPROVING CHF-IMPROVING VALVULAR HEART DZ SCHIZOPHRENIA HYPONATREMIA FEVER/URI Plan: CONTINUE CURRENT RX ENDOCRINE EVAL RE-HYPONATREMIA AUDIOVISUAL TECH FOR D/C PLANNING ONCE CLEARED BY ENDO
[2017-06-16] MEDS: Enoxaparin 40 mg Syringe SC SCH ×2 (09:08→09:23)
[2017-06-16] MEDS: levoFLOXacin 500 mg in D5W 500 MG/100 ML BAG IVPB SCH (09:08)
[2017-06-16] MEDS: Silver Sulfadiazine 1% CREAM (50 gm) TOP SCH (09:11)
[2017-06-16] MEDS: MethylPREDNISolone 40 mg Vial IVP SCH ×2 (09:11→22:24)
[2017-06-16] MEDS: Metoprolol Succinate 25 mg XL Tab PO SCH (09:12)
--- NOTE | 2017-06-16 14:33 | PN ---
DATE: 06/16/2017 SUBJECTIVE: The patient denies any chest pain. He is mildly short of breath. PHYSICAL EXAMINATION: VITAL SIGNS: Blood pressure 133/81, heart rate 66, temperature 97.8, and respirations 18. HEENT: Normocephalic. CHEST: Bilateral rhonchi. HEART: S1 and S2 regular. EXTREMITIES: No edema. LABORATORY DATA: SMA-7 is within normal limits except for sodium of 126 and chloride of 90. ASSESSMENT: 1. Exacerbation of chronic obstructive lung disease. 2. Moderate left ventricular systolic dysfunction. 3. Severe mitral insufficiency. 4. Mild pulmonary hypertension. 5. Hyponatremia. 6. Seizure disorder. RECOMMENDATIONS: Continue ramipril 10 mg once a day, aspirin 81 mg once a day, Lasix intravenously once a day, Lovenox 40 mg subcutaneously once a day, Solu-Medrol 40 mg intravenously every 12 hours, and Toprol-XL 25 mg once a day. Tegretol. Marvin Hauser MD
[2017-06-16 19:47] VITALS: RESP 18
--- NOTE | 2017-06-16 22:59 | CON ---
ENDOCRINOLOGY CONSULT DATE: LOCATION: In room 418 HISTORY OF PRESENT ILLNESS: This is a 62-year-old male with known history of chronic schizoaffective disorder, presenting here with congestive heart failure and progressive shortness of breath and is currently receiving IV steroid therapy and is being referred also now for evaluation of persistent hyponatremia. PAST MEDICAL HISTORY: As mentioned above, history of schizophrenia with previous admissions for major depression as noted, history of coronary artery disease with previous admissions for congestive heart failure as noted, his ejection fraction apparently is 40% from the last echocardiogram undertaken, history of recent evaluation for mitral regurgitation, history of hypertension and dyslipidemia, and history of COPD with underlying emphysema. FAMILY HISTORY: Positive for hypertension and heart disease. SOCIAL HISTORY: The patient admits to nicotine dependence and also chronic alcoholism and currently staying in a longterm for alcohol detox program. He has a supportive family otherwise. REVIEW OF SYSTEMS: As mentioned above. Admits to generalized body weakness with easy fatigability and tiredness and suboptimal energy level. Also admits to dizziness and lightheadedness worse on the day. No chest pains, but admits to progressive shortness of breath, initially on exertion and then at rest with paroxysmal nocturnal dyspnea. Also admits to occasional bouts of precordial tightness as noted with occasional pleuritic chest pain. PHYSICAL EXAMINATION: GENERAL: This is an average built male in no apparent distress. VITAL SIGNS: , pulse of 70 beats per minute and regular, temperature 98, respirations 20, height is 5 feet 7 inches, and weight 143 pounds. HEENT: Head is normocephalic. Eyes anicteric with pink conjunctivae. Funduscopy not possible at this time. Ears, nose, and throat otherwise normal. NECK: Supple. Thyroid gland is normal in size. No carotid bruits or any cervical adenopathy. CARDIOPULMONARY: Some adynamic precordium. S1 and S2 is rapid. LUNGS: Clear to auscultation. ABDOMEN: Flat and soft with positive bowel sounds. EXTREMITIES: No peripheral edema. Pulses are +2 bilaterally. LABORATORY DATA: Chemistries showed a BUN of 20, sodium 126, potassium 4.5, chloride 90, CO2 of 28, glucose 269, and creatinine 0.8. His initial serum sodium was 123 as noted. He is also on diuretic therapy. ASSESSMENT AND PLAN: This is a 62-year-old male with acute exacerbation of chronic obstructive pulmonary disease and concomitant congestive heart failure, currently on IV diuretic therapy and also IV steroid therapy as noted and is being referred for evaluation of persistent hyponatremia as noted thereof. There is also a superimposed syndrome of inappropriate secretion of antidiuretic hormone picture with intercurrent congestive heart failure and concomitant diuretic usage, which is really the main contributory factor for the persistent hyponatremia. We have to exclude however any underlying autoimmune endocrinopathy, which can also contribute to the hyponatremic factor, hypoadrenalism, or hypothyroidism thereof. Plan of management as discussed we will modify his current orders and do a comprehensive thyroid hormonal profile to include a total of free T4 and TSH and also include thyroid peroxidase the presence of underlying thyroid autoimmunity. We will obtain serial chemistry and supplement accordingly as needed. We will add baseline thyroid studies and also plasma ACTH level as ordered. Moreover, we will add demeclocycline given as 150 mg b.i.d. after meals to start today. We will titrate incremental as indicated to optimize metabolic control. We will follow. Meli Livingston MD
[2017-06-17] MEDS: Albuterol-Ipratrop 3 mg / 0.5 (3 ml) UD INH SCH ×3 (02:15→13:48)
[2017-06-17 06:33] LABS: ALB/GLOB RATIO 1.4 (1.0-2.1); ALBUMIN 3.8 g/dL (3.5-5.0); ALT/SGPT 46 U/L (21-72); AST/SGOT 38 U/L (17-59); BLOOD UREA NITROGEN 17 mg/dl (9-20); CALCIUM 9.2 mg/dL (8.4-10.2); GFR AFRICAN-AMERICAN > 60; GFR NON-AFRICAN AMERICAN > 60
[2017-06-17 06:50] LABS: T4 7.12 ug/dl (5.5-11.0)
[2017-06-17] MEDS: levoFLOXacin 500 mg in D5W 500 MG/100 ML BAG IVPB SCH (09:20)
[2017-06-17] MEDS: Enoxaparin 40 mg Syringe SC SCH (10:17)
[2017-06-17] MEDS: Metoprolol Succinate 25 mg XL Tab PO SCH (10:18)
[2017-06-17] MEDS: Silver Sulfadiazine 1% CREAM (50 gm) TOP SCH (10:19)
[2017-06-17] MEDS: MethylPREDNISolone 40 mg Vial IVP SCH (10:20)
--- NOTE | 2017-06-17 15:40 | CP.PCM.DIS ---
Provider - Provider Date of Admission: 06/13/17 20:03 Attending physician: Lambert Best MD Time Spent in preparation of Discharge (in minutes): 30 Diagnosis - Discharge Diagnosis (1) CHF (congestive heart failure) Status: Acute (2) COPD exacerbation Status: Acute (3) Hyponatremia Status: Acute (4) Essential (primary) hypertension Status: Chronic (5) Schizophrenia Status: Chronic (6) Tobacco use Status: Chronic Hospital Course - Lab Results Lab Results: Micro Results 06/14/17 15:36 Urine Urine Culture - Final Coagulase Neg Staphylococcus 06/13/17 19:10 Blood-Venous Blood Culture - Preliminary NO GROWTH AFTER 3 DAYS 06/13/17 18:00 Blood-Venous Blood Culture - Preliminary NO GROWTH AFTER 3 DAYS Most Recent Lab Values WBC 3.6 K/uL (4.8-10.8) L 06/14/17 04:20 RBC 4.29 Mil/uL (4.40-5.90) L 06/14/17 04:20 Hgb 14.6 g/dL (12.0-18.0) 06/14/17 04:20 Hct 41.5 % (35.0-51.0) 06/14/17 04:20 MCV 96.8 fl (80.0-94.0) H 06/14/17 04:20 MCH 34.0 pg (27.0-31.0) H 06/14/17 04:20 MCHC 35.1 g/dL (33.0-37.0) 06/14/17 04:20 RDW 13.2 % (11.5-14.5) 06/14/17 04:20 Plt Count 109 K/uL (130-400) L 06/14/17 04:20 MPV 7.0 fl (7.2-11.7) L 06/13/17 18:00 Neut % (Auto) 61.6 % (50.0-75.0) 06/13/17 18:00 Lymph % (Auto) 14.7 % (20.0-40.0) L 06/13/17 18:00 [place] % (Auto) 22.6 % (0.0-10.0) H 06/13/17 18:00 Eos % (Auto) 0.3 % (0.0-4.0) 06/13/17 18:00 Baso % (Auto) 0.8 % (0.0-2.0) 06/13/17 18:00 Neut # (Auto) 2.3 K/uL (1.8-7.0) 06/13/17 18:00 Lymph # (Auto) 0.5 K/uL (1.0-4.3) L 06/13/17 18:00 [place] # (Auto) 0.8 K/uL (0.0-0.8) 06/13/17 18:00 Eos # (Auto) 0.0 K/uL (0.0-0.7) 06/13/17 18:00 Baso # (Auto) 0.0 K/uL (0.0-0.2) 06/13/17 18:00 Neutrophils % (Manual) 68 % (42-75) 06/13/17 18:00 Band Neutrophils % 1 % (0-2) 06/13/17 18:00 Lymphocytes % (Manual) 3 % (20-50) L 06/13/17 18:00 Reactive Lymphs % 8 % (0-0) H 06/13/17 18:00 Monocytes % (Manual) 20 % (0-10) H 06/13/17 18:00 Platelet Estimate Decreased (NORMAL) L 06/13/17 18:00 RBC Morphology Normal (NORMAL) 06/13/17 18:00 PT 11.5 Seconds (9.8-13.1) 06/13/17 18:00 INR 1.0 (0.9-1.2) 06/13/17 18:00 APTT 31.9 Seconds (25.6-37.1) 06/13/17 18:00 pCO2 32 mm/Hg (35-45) L 06/14/17 09:14 pO2 94 mm/Hg (80-100) 06/14/17 09:14 HCO3 25.6 mmol/L (21-28) 06/14/17 09:14 ABG pH 7.48 (7.35-7.45) H 06/14/17 09:14 ABG Total CO2 24.8 mmol/L (22-28) 06/14/17 09:14 ABG O2 Saturation 98.9 % (95-98) H 06/14/17 09:14 ABG O2 Content 19.1 ML/dL (15-23) 06/14/17 09:14 ABG Base Excess 1.0 mmol/L (-2.0-3.0) 06/14/17 09:14 ABG Hemoglobin 14.5 g/dL (11.7-17.4) 06/14/17 09:14 ABG Carboxyhemoglobin 4.4 % (0.5-1.5) H 06/14/17 09:14 POC ABG HHb (Measured) 1.0 % (0.0-5.0) 06/14/17 09:14 ABG Methemoglobin 1.4 % (0.0-3.0) 06/14/17 09:14 ABG O2 Capacity 19.3 mL/dL (16-24) 06/14/17 09:14 Taj Test Yes 06/14/17 09:14 VBG pH 7.44 (7.32-7.43) H 06/13/17 18:07 VBG pCO2 40 mmHg (40-60) 06/13/17 18:07 VBG HCO3 26.6 mmol/L 06/13/17 18:07 VBG Total CO2 28.4 mmol/L (22-28) H 06/13/17 18:07 VBG O2 Sat (Calc) 82.2 % (40-65) H 06/13/17 18:07 VBG Base Excess 2.8 mmol/L (0.0-2.0) H 06/13/17 18:07 VBG Potassium 4.6 mmol/L (3.6-5.2) 06/13/17 18:07 A-a O2 Difference 16.0 mm/Hg 06/14/17 09:14 Hgb O2 Saturation 93.2 % (95.0-98.0) L 06/14/17 09:14 Sodium 120.0 mmol/L (132-148) L* 06/13/17 18:07 Chloride 89.0 mmol/L (98-107) L 06/13/17 18:07 Glucose 72 mg/dL (75-110) L 06/13/17 18:07 Lactate 0.9 mmol/L (0.7-2.1) 06/13/17 18:07 FiO2 21.0 % 06/14/17 09:14 Blood Gas Comments Ra21% 06/14/17 09:14 Crit Value Called To Rowan lewis r.n. 06/14/17 09:14 Crit Value Called By Padmini 06/14/17 09:14 Crit Value Read Back N 06/14/17 09:14 Blood Gas Notified Time 1050 06/14/17 09:14 Sodium 130 mmol/l (132-148) L 06/17/17 06:00 Potassium 4.5 MMOL/L (3.6-5.0) 06/17/17 06:00 Chloride 91 mmol/L (98-107) L 06/17/17 06:00 Carbon Dioxide 28 mmol/L (22-30) 06/17/17 06:00 Anion Gap 16 (10-20) 06/17/17 06:00 BUN 17 mg/dl (9-20) 06/17/17 06:00 Creatinine 0.7 mg/dl (0.8-1.5) L 06/17/17 06:00 Est GFR ( Amer) > 60 06/17/17 06:00 Est GFR (Non-Af Amer) > 60 06/17/17 06:00 Random Glucose 94 mg/dL (75-110) 06/17/17 06:00 Serum Osmolality 269 mosm/kg (272-300) L 06/16/17 11:50 Calcium 9.2 mg/dL (8.4-10.2) 06/17/17 06:00 Phosphorus 3.8 mg/dl (2.5-4.5) 06/13/17 18:00 Magnesium 1.9 MG/DL (1.6-2.3) 06/13/17 18:00 Total Bilirubin 0.5 mg/dl (0.2-1.3) 06/17/17 06:00 AST 38 U/L (17-59) 06/17/17 06:00 ALT 46 U/L (21-72) 06/17/17 06:00 Alkaline Phosphatase 70 U/L (38-126) 06/17/17 06:00 Troponin I 0.0140 ng/mL (0.00-0.120) 06/13/17 18:00 NT-Pro-B Natriuret Pep 1200 pg/ml (0-900) H 06/15/17 04:20 Total Protein 6.5 G/DL (6.3-8.2) 06/17/17 06:00 Albumin 3.8 g/dL (3.5-5.0) 06/17/17 06:00 Globulin 2.7 gm/dL (2.2-3.9) 06/17/17 06:00 Albumin/Globulin Ratio 1.4 (1.0-2.1) 06/17/17 06:00 Thyroxine (T4) 7.12 ug/dl (5.5-11.0) 06/17/17 06:00 TSH 3rd Generation 1.26 mIU/ML (0.46-4.68) 06/17/17 06:00 Cortisol AM Sample 2.2 ug/dL (4.46-22.7) L 06/17/17 06:00 Venous Blood Potassium 4.6 mmol/L (3.6-5.2) 06/13/17 18:07 Urine Osmolality 251 mosm/kg (300-1000) L 06/16/17 17:50 Phenytoin 4.9 ug/ML (10-20) L 06/14/17 08:45 Carbamazepine < 3.0 ug/mL (4.0-12.0) L 06/14/17 08:45 Influenza Typ A,B (EIA) Negative for flu a/b (NEGATIVE) 06/13/17 19:10 Blood Type A POSITIVE 06/13/17 18:00 Blood Type Confirm A POSITIVE 06/13/17 19:00 Antibody Screen Negative 06/13/17 18:00 BBK History Checked No verified bt 06/13/17 18:00 - Hospital Course Hospital Course: clinically improved Discharge Exam - Head Exam Head Exam: ATRAUMATIC, NORMOCEPHALIC - Eye Exam Eye Exam: EOMI, Normal appearance, PERRL Pupil Exam: NORMAL ACCOMODATION, PERRL - GI/Abdominal Exam GI & Abdominal Exam: Normal Bowel Sounds - Rectal Exam Rectal Exam: NORMAL INSPECTION - Neurological Exam Neurological exam: Alert, CN II-XII Intact, Normal Gait, Oriented x3, Reflexes Normal - Psychiatric Exam Psychiatric exam: Normal Affect, Normal Mood - Skin Skin Exam: Dry, Intact, Normal Color, Warm Discharge Plan - Follow Up Plan Condition: GUARDED Disposition: HOME/ ROUTINE Patient education suggested?: Yes Additional Instructions: discharge to longterm
[2017-06-17 16:18] VITALS: BP 130/61; PULSE 64; TEMP 98.9; O2SAT 97
--- NOTE | 2017-06-17 20:24 | PN ---
ENDOCRINOLOGY FOLLOWUP NOTE DATE: 06/17/2017 LOCATION: In room 418. SUBJECTIVE: This is a 62-year-old male presenting here with congestive heart failure and acute exacerbation of COPD, currently on IV steroid therapy and is now being followed closely also for persistent hyponatremia as noted thereof. His repeat chemistries today showed BUN of 17, sodium of 130, potassium of 4.5, chloride of 91, CO2 of 28, glucose of 94, and creatinine of 0.7. The latest thyroid studies showed T4 of 7.12 with a TSH of 1.26 and serum cortisol level of 2.2 mcg/dL. As mentioned above, the serum sodium has improved and went up to 130 mmol/L. ASSESSMENT AND PLAN: This is a 62-year-old male with euvolemic hyponatremia most likely related to syndrome of inappropriate secretion of antidiuretic hormone and also with concomitant diuretic-induced hyponatermia with underlying congestive heart failure and is now being followed closely for metabolic management. Plan of management as discussed with the patient and staff. We will continue the demeclocycline given as 150 mg b.i.d. after meals as ordered. We will titrate prudently as indicated to optimize metabolic control. We will obtain serial chemistries and supplement accordingly as needed. We will also obtain serial sodium levels as indicated to optimize metabolic control. We will also obtain serial cortisol levels with a low normal initial cortisol value as noted. biochemical improvement as his clinical status improved accordingly. We will follow. Meli Livingston MD
== END 2017-06-17 17:00 | disposition home or self-care (01) | DRG 191 ==
LOC: H.ER 17:20 → H.ERHOLD 20:03 → H.TEL 21:48
PROVIDERS: ADMIT Internal Medicine Pulmonary Disease; ATTEND Internal Medicine Pulmonary Disease
PROC: 3E0F73Z Introduction of Anti-inflammatory into Respiratory Tract, Via Natural or Artificial Opening (ICD-10-PCS; principal; 2017-06-13)
DX: J44.1 Chronic obstructive pulmonary disease with (acute) exacerbation (principal); E22.2 Syndrome of inappropriate secretion of antidiuretic hormone; I50.20 Unspecified systolic (congestive) heart failure; I11.0 Hypertensive heart disease with heart failure; I34.0 Nonrheumatic mitral (valve) insufficiency; F25.8 Other schizoaffective disorders; I27.20 Pulmonary hypertension, unspecified; G40.909 Epilepsy, unspecified, not intractable, without status epilepticus; D69.6 Thrombocytopenia, unspecified; I25.10 Atherosclerotic heart disease of native coronary artery without angina pectoris; D72.819 Decreased white blood cell count, unspecified; F10.20 Alcohol dependence, uncomplicated; F17.210 Nicotine dependence, cigarettes, uncomplicated; F17.290 Nicotine dependence, other tobacco product, uncomplicated; H40.9 Unspecified glaucoma

== ENCOUNTER 2017-09-28 16:54 | Emergency (ER) | payer MEDICARE ==
[2017-09-28 16:54] VITALS: BMI 21.5
--- NOTE | 2017-09-28 18:10 | ED PDOC ---
HPI: Psych/Substance Abuse Time Seen by Provider: 09/28/17 17:12 Chief Complaint (Nursing): Psychiatric Evaluation Chief Complaint (Provider): Evaluation History Per: Patient History/Exam Limitations: no limitations Additional Complaint(s): 62 y/o male with a PMHx of paranoid schizophrenia, seizure disorder, and EtOH abuse presents to the ED for evaluation. Patient reports of leaving care home last night and did not return until this morning. Patient states in order to return, he must be medically and psychiatrically cleared. Patient is compliant with medications but missed a dose yesterday because of elopement from care home. Otherwise: (-) physical compliant, (-) suicidal ideation, (-) homicidal ideation, (-) substance abuse. PMD: Deangelo Renee Past Medical History Reviewed: Historical Data, Nursing Documentation, Vital Signs Vital Signs: Last Vital Signs Temp 96.3 F L 09/28/17 17:01 Pulse 75 09/28/17 17:01 Resp 16 09/28/17 17:01 BP 151/81 H 09/28/17 17:01 Pulse Ox 99 09/28/17 17:01 - Medical History PMH: Depression, Emphysema, HTN, Schizophrenia, Seizures Other PMH: EtOH Abuse - Surgical History Surgical History: No Surg Hx - Family History Family History: States: Unknown Family Hx - Home Medications Home Medications: Ambulatory Orders Medication Instructions Recorded Atenolol [Tenormin] 25 mg PO DAILY 06/13/17 Benztropine [Cogentin] 1 mg PO Q12 06/13/17 Carbamazepine [Carbamazepine ER] 300 mg PO HS 06/13/17 Famotidine [Pepcid] 20 mg PO BID 06/13/17 Ibuprofen [Motrin Tab] 400 mg PO Q6 PRN 06/13/17 Phenytoin, Extended [Dilantin] 200 mg PO Q12 06/13/17 Ramipril [Altace] 10 mg PO DAILY 06/13/17 Silver Sulfadiazine [Ssd] 1 appl TOP DAILY 06/13/17 risperiDONE [RisperDAL Tab] 3 mg PO Q12 06/13/17 Demeclocycline [Declomycin] 150 mg PO BID #60 tab 06/17/17 carBAMazepine [TEGretol-XR] 300 mg PO HS #60 ter 06/17/17 - Allergies Allergies/Adverse Reactions: Allergies Allergy/AdvReac Type Severity Reaction Status Date / Time No Known Allergies Allergy Verified 11/27/15 23:12 Review of Systems ROS Statement: Except As Marked, All Systems Reviewed And Found Negative Constitutional: Positive for: Other (Medical Clearance) Psych: Positive for: Other (Psychiatric Clearance) Physical Exam - Reviewed Nursing Documentation Reviewed: Yes Vital Signs Reviewed: Yes - Physical Exam Comments: GENERAL APPEARANCE: Patient is resting comfortably, awake, alert, oriented x 3, in no acute distress. SKIN: Warm, dry; (-) cyanosis EYES: (-) nystagmus. ENMT: Mucous membranes moist. Airway patent: (-) stridor. NECK: Supple, FROM HEART AND CARDIOVASCULAR: (-) irregularity; (-) murmur CHEST AND RESPIRATORY: (-) rales, (-) rhonchi, (-) wheezes; breath sounds equal. Respirations even and nonlabored. ABDOMEN: Soft, (-) distention, (-) tenderness, (-) guarding. NEURO AND PSYCH: Mental status as above. Affect: flat brain picker: Intact. Pupils equal and reactive; EOMI; (-) facial asymmetry; tongue and uvula midline. Gait steady , speech clear. - ECG O2 Sat by Pulse Oximetry: 99 (RA) Pulse Ox Interpretation: Normal Medical Decision Making Medical Decision Making: Time: 1645 Impression: Medical and Psychiatric Evaluation Plan: -- Crisis Evaluation as Ordered Time: 1750 Repeat BP: 141/85 Per crisis evaluation, patient it psychiatrically stable to return to care home with the diagnosis of Schizophrenia per Dr Asher. On re-evaluation, patient offers no complaints. On exam, patient remains AAOx3, in no acute distress. Lungs clear to auscultation, cardiac RRR, repeat neuro exam shows no focal findings. Vitals stable. Lab/Diagnostic results d/w the patient in great detail. Diagnosis of medical and psychiatric evaluation d/w the patient. Based on history, exam and diagnostic results, plan will be for outpatient follow up. Patient instructed to follow-up with pmd / referral provided / the clinic in 1- 2 days without fail. Return to the emergency room at any time for any new or worsening symptoms. Patient states he fully agrees with and understands discharge instructions. States that he agrees with the plan and disposition. Verbalized and repeated discharge instructions and plan. I have given the patient opportunity to ask any additional questions. Scribe Attestation: Documented by Kike Victor acting as a scribe for Christina Rios PA-C. Provider Scribe Attestation: All medical record entries made by the Scribe were at my direction and personally dictated by me. I have reviewed the chart and agree that the record accurately reflects my personal performance of the history, physical exam, medical decision making, and the department course for this patient. I have also personally directed, reviewed, and agree with the discharge instructions and disposition. Disposition - Clinical Impression Clinical Impression: Evaluation by medical service required - Patient ED Disposition Is Patient to be Admitted: No Counseled Patient/Family Regarding: Diagnosis, Need For Followup - Disposition Referrals: Deangelo Renee MD [Family Provider] - Disposition: Routine/Home Disposition Time: 18:07 Condition: STABLE Additional Instructions: PATIENT IS MEDICALLY AND PSYCHIATRICALLY STABLE TO RETURN TO [facility] The emergency medical care you received today was directed at your acute symptoms. If you were prescribed any medication, please fill it and take as directed. It may take several days for your symptoms to resolve. Return to the Emergency Department if your symptoms worsen, do not improve, or if you have any other problems. Please contact your doctor in 2 days for re-evaluation and follow up / or call one of the physicians/clinics you have been referred to that are listed on the Patient Visit Information form that is included in your discharge packet. Bring any paperwork you were given at discharge with you along with any medications you are taking to your follow up visit. Our treatment cannot replace ongoing medical care by a primary care provider (PCP) outside of the emergency department. Instructions: General (DC) Forms: [employer] (Rwandan) Print Language: YAKUT - POA Present On Arrival: None
[2017-09-28 18:22] VITALS: BP 141/85; PULSE 78; RESP 17; TEMP 98.2
[2017-09-28 18:47] VITALS: O2SAT 99
== END 2017-09-28 18:45 | disposition home or self-care (01) ==
LOC: H.ER 16:54
DX: Z04.8 Encounter for examination and observation for other specified reasons (principal)

== ENCOUNTER 2018-03-01 11:54 | Emergency (ER) | payer MEDICARE ==
[2018-03-01 12:02] VITALS: BMI 24.0
[2018-03-01 12:04] VITALS: BP 151/85; PULSE 58; RESP 20; TEMP 97.8; O2SAT 100
--- NOTE | 2018-03-01 12:27 | ED PDOC ---
HPI: General Adult Time Seen by Provider: 03/01/18 12:27 Chief Complaint (Nursing): Upper Extremity Problem/Injury Chief Complaint (Provider): fall History Per: Patient Additional Complaint(s): 63 y/o male presents to ED for evaluation s/p fall at [facility] this morning. Patient states he tripped over a cord on the floor. He did not sustain any injuries as result of fall. He denies dizziness or syncope prior to fall. [facility] called ambulance for patient to come to ED for evaluation. Upon arrival patient offers no complaints. Past Medical History Reviewed: Historical Data, Nursing Documentation, Vital Signs Vital Signs: Last Vital Signs Temp 97.8 F 03/01/18 12:02 Pulse 58 L 03/01/18 12:02 Resp 20 03/01/18 12:02 BP 151/85 H 03/01/18 12:02 Pulse Ox 100 03/01/18 12:02 - Medical History PMH: Depression, Emphysema, HTN, Schizophrenia, Seizures - Family History Family History: States: No Known Family Hx, Unknown Family Hx - Living Arrangements Living Arrangements: Other (lives in retirement) - Social History Current smoker - smoking cessation education provided: No Ex-Smoker (has not smoked in the last 12 months): Yes Alcohol: None Drugs: Denies - Home Medications Home Medications: Ambulatory Orders Medication Instructions Recorded Atenolol [Tenormin] 25 mg PO DAILY 06/13/17 Benztropine [Cogentin] 1 mg PO Q12 06/13/17 Carbamazepine [Carbamazepine ER] 300 mg PO HS 06/13/17 Famotidine [Pepcid] 20 mg PO BID 06/13/17 Ibuprofen [Motrin Tab] 400 mg PO Q6 PRN 06/13/17 Phenytoin, Extended [Dilantin] 200 mg PO Q12 06/13/17 Ramipril [Altace] 10 mg PO DAILY 06/13/17 Silver Sulfadiazine [Ssd] 1 appl TOP DAILY 06/13/17 risperiDONE [RisperDAL Tab] 3 mg PO Q12 06/13/17 Demeclocycline [Declomycin] 150 mg PO BID #60 tab 06/17/17 carBAMazepine [TEGretol-XR] 300 mg PO HS #60 ter 06/17/17 - Allergies Allergies/Adverse Reactions: Allergies Allergy/AdvReac Type Severity Reaction Status Date / Time No Known Allergies Allergy Verified 03/01/18 12:12 Review of Systems ROS Statement: Except As Marked, All Systems Reviewed And Found Negative Constitutional: Negative for: Fever, Chills, Weakness Cardiovascular: Negative for: Chest Pain Respiratory: Negative for: Cough Gastrointestinal: Negative for: Nausea, Vomiting Neurological: Negative for: Headache, Dizziness Physical Exam - Reviewed Nursing Documentation Reviewed: Yes Vital Signs Reviewed: Yes - Physical Exam Appears: Positive for: Well, Non-toxic, No Acute Distress Head Exam: Positive for: ATRAUMATIC, NORMAL INSPECTION Skin: Positive for: Normal Color. Negative for: Rash Eye Exam: Positive for: Normal appearance Neck: Positive for: Normal Cardiovascular/Chest: Positive for: Regular Rate, Rhythm Respiratory: Positive for: Normal Breath Sounds. Negative for: Respiratory Distress Gastrointestinal/Abdominal: Positive for: Soft. Negative for: Tenderness, Distended, Guarding, Rebound Back: Negative for: L CVA Tenderness, R CVA Tenderness, Vertebral Tenderness Extremity: Positive for: Normal ROM. Negative for: Tenderness Neurologic/Psych: Positive for: Alert, Oriented, Gait (steady with cane used at [place]). Negative for: Aphasia, Facial Droop - ECG O2 Sat by Pulse Oximetry: 100 Pulse Ox Interpretation: Normal Medical Decision Making Medical Decision Makin63 y/o male presents s/p fall Patient is ambulatory with cane that he uses at baseline. He denies any injuries as a result of fall. He denies dizziness or syncope prior to fall and did not sustain any head injury. Patient is stable for discharge from ED. Disposition - Clinical Impression Clinical Impression: Fall - Patient ED Disposition Is Patient to be Admitted: No Counseled Patient/Family Regarding: Diagnosis, Need For Followup - Disposition Referrals: [facility] [Outside] Disposition: Routine/Home Disposition Time: 12:53 Condition: STABLE Additional Instructions: Follow up with primary care doctor or return to ED at any time if acutely worse. Instructions: Preventing Falls in the Older Adult, Getting Up From a Fall Forms: [employer] ([place]ese)
== END 2018-03-01 14:25 | disposition home or self-care (01) ==
LOC: H.ER 11:54
DX: Z00.00 Encounter for general adult medical examination without abnormal findings (principal)